=== PATIENT | female | born 1970 | race Caucasian/White ===

== ENCOUNTER → 2016-11-15 | Outpatient (CLI) | payer OTHER ==
--- NOTE | 2016-11-17 14:41 | MAMMOGRAPHY REPORT ---
BILATERAL DIGITAL SCREENING MAMMOGRAM TOMOSYNTHESIS WITH CAD: 11/15/2016 CLINICAL HISTORY: Routine screening. Patient has no complaints. TECHNIQUE: Breast tomosynthesis in addition to standard 2D mammography was performed. Current study was also evaluated with a Computer Aided Detection (CAD) system. COMPARISON: Comparison is made to exams dated: 01/27/2011 mammogram, 04/18/2012 mammogram, 01/28/2014 m ammogram, and 04/08/2015 mammogram - [facility]. BREAST COMPOSITION: There are scattered areas of fibroglandular density in both breasts. FINDINGS: There is a new 4.6 mm nodular asymmetry versus mass in the medial, posterior right breast on the CC view, thought to project superiorly on the MLO view. Although this could represent a cys t, definitive characterization with spot compression tomosynthesis views and possibly ultrasound are recommended. No other suspicious mass, architectural distortion or cluster of microcalcifications is seen bilater ally. IMPRESSION: ACR BI-RADS CATEGORY 0: INCOMPLETE EVALUATION: NEED ADDITIONAL IMAGING EVALUATION The new 4.6 mm nodular asymmetry versus mass in the medial, posterior right breast needs additional evaluation. The patient will be called to schedule an appointment. Approximately 10% of breast cancers are not detected with mammography. A negative mammographic repor t should not delay biopsy if a clinically suggestive mass is present. Erica Benavidez M.D. ay/:11/16/2016 21:09:13 Coke Burner: Vero LAZAR)(Amy), [facility] letter sent: Addl Imaging 0 BI-RADS Code: ACR BI-RADS Category 0: Incomplete Evaluation: Need Additional Imaging Evaluation
== END | disposition home or self-care (01) ==
LOC: C.MAMM 13:41
PROVIDERS: ATTEND Nurse Practitioner
DX: Z12.31 Encounter for screening mammogram for malignant neoplasm of breast (principal); N64.9 Disorder of breast, unspecified

== ENCOUNTER → 2016-11-15 | Outpatient (CLI) | payer OTHER | END | disposition home or self-care (01) | LOC: C.PAPS 09:53 | PROVIDERS: ATTEND Obstetrics & Gynecology | DX: Z12.4 Encounter for screening for malignant neoplasm of cervix (principal); Z87.42 Personal history of other diseases of the female genital tract ==

== ENCOUNTER → 2016-11-23 | Outpatient (CLI) | payer OTHER ==
--- NOTE | 2016-11-23 15:18 | MAMMOGRAPHY REPORT ---
UNILATERAL RIGHT DIGITAL DIAGNOSTIC MAMMOGRAM TOMOSYNTHESIS AND TARGETED RIGHT ULTRASOUND: 11/23/2016 CLINICAL HISTORY: 46 year old woman called back from screening mammography for a small 4.6 mm nodula r asymmetry in the medial posterior right breast. This is thought to project superior based on the MLO view. It was not definitely seen on prior outside mammograms from 2010, 2013 and 2014. TECHNIQUE: Spot compression CC and MLO tomosynthesis images of the right breast were obtained. COMPARISON: Comparison is made to exams dated: 11/15/2016 mammogram - [facility], mammogram, 01/28/2014 mammogram, 04/18/2012 mammogram, and [facility]. BREAST COMPOSITION: There are scattered areas of fibroglandular density in the right breast. FINDINGS: On the spot compression CC view of the right breast, there is elongation of the nodular a symmetry and narrowing as well. This nodular area currently measures 6.5 x 2.6 mm. There is no ass ociated architectural distortion, spiculation or microcalcification. A corresponding abnormality is not identified on the spot compression MLO views. Further evaluation with ultrasound was performed . Targeted ultrasound was performed at the medial right breast. Normal fibroglandular tissue is seen without a discrete solid or cystic mass. IMPRESSION: ACR-BI-RADS CATEGORY 3: PROBABLY BENIGN, TARGETED ULTRASOUND ACR-BI-RADS CATEGORY 3: MT OBABLY BENIGN The nodular asymmetry in the medial posterior right breast elongates with the additional spot compre ssion right CC view and has the appearance of normal fibroglandular tissue. However, this was not d efinitely seen on the prior outside mammograms to confirm stability. No suspicious sonographic fani elate was identified. Although this is probably benign and could represent a cyst or normal island of glandular tissue, a short interval follow-up right mammogram including tomosynthesis images and p ossible repeat ultrasound is recommended to ensure stability in 6 months. These results and recommendations were discussed with the patient at the time of the exam. Approximately 10% of breast cancers are not detected with mammography. A negative mammographic repor t should not delay biopsy if a clinically suggestive mass is present. Erica Benavidez M.D. ay/:11/23/2016 13:48:45 Executive Vice President And Chief Financial Officer: Kelsi Sarkar RT(R)(M), [facility] letter sent: Follow Up Recommended 3 BI-RADS Code: ACR-BI-RADS Category 3: Probably Benign Ultrasound BI-RADS: ACR-BI-RADS Category 3: P robably Benign
== END | disposition home or self-care (01) ==
LOC: C.MAMM 12:55
PROVIDERS: ATTEND Nurse Practitioner
DX: N64.89 Other specified disorders of breast (principal)

== ENCOUNTER → 2017-06-07 | Outpatient (CLI) | payer OTHER ==
--- NOTE | 2017-06-07 15:16 | MAMMOGRAPHY REPORT ---
UNILATERAL RIGHT DIGITAL DIAGNOSTIC MAMMOGRAM TOMOSYNTHESIS WITH CAD: 06/07/2017 CLINICAL HISTORY: 46 year old woman presents for follow-up in the right breast for a probably benign 2 x 6 cm nodular asymmetry in the medial posterior breast, without sonographic correlate. TECHNIQUE: Breast tomosynthesis in addition to standard 2D mammography was performed. Current study was also evaluated with a Computer Aided Detection (CAD) system. COMPARISON: Comparison is made to exams dated: 11/23/2016 mammogram, 11/15/2016 mammogram - [facility], 04/08/2015 mammogram, 01/28/2014 mammogram, 04/18/2012 mammogram, and 01/27/2011 mammog saulo - [facility]. BREAST COMPOSITION: There are scattered areas of fibroglandular density in the right breast. FINDINGS: The 2 x 6 mm nodular asymmetry in the medial posterior right breast is no longer identified , confirming benignity. This could have represented a resolving cyst or fat necrosis. No new suspic ious masses, calcifications, distortion or asymmetries are seen in the right breast. Recommend retur n to annual screening mammography schedule, due in November 2017. IMPRESSION: ACR BI-RADS CATEGORY 2: BENIGN The 2 x 6 nodular asymmetry in the medial posterior right breast is no longer seen, confirming benign ity. There is no mammographic evidence of malignancy in the right breast. Return to annual mammogram screening schedule is recommended (due November 2017). The patient has been verbally notified of the r esults. Approximately 10% of breast cancers are not detected with mammography. A negative mammographic report should not delay biopsy if a clinically suggestive mass is present. Erica Benavidez M.D. ay/:06/07/2017 13:52:58 Collections Director: Fifi WARD(R)(Amy), [facility] letter sent: Normal 1/2 BI-RADS Code: ACR BI-RADS Category 2: Benign
== END | disposition home or self-care (01) ==
LOC: C.MAMM 13:29
PROVIDERS: ATTEND Nurse Practitioner
DX: N64.89 Other specified disorders of breast (principal)

== ENCOUNTER → 2018-03-08 | Outpatient (CLI) | payer OTHER | END | disposition home or self-care (01) | LOC: C.PAPS 18:02 | PROVIDERS: ATTEND Obstetrics & Gynecology | DX: Z12.4 Encounter for screening for malignant neoplasm of cervix (principal) ==